=== PATIENT | female | born 1990 | race Caucasian/White ===

== ENCOUNTER 2024-05-17 19:44 | Emergency (ER) | payer OTHER ==
[2024-05-17] VITALS (12 sets, daily range): BP systolic 93–132; BP diastolic 52–113
[2024-05-17] MEDS ORDERED: KETOROLAC TROMETHAMINE 30 MG/ML SDV IM ONE (20:25)
[2024-05-17] MEDS ORDERED: BENZONATATE 200 MG/CAP PO ONE (20:25)
[2024-05-17] MEDS ORDERED: DEXAMETHASONE 2 MG/TAB TAB PO ONE (20:25)
[2024-05-17] MEDS ORDERED: BENZONATATE200 MG PO (22:50)
[2024-05-17] MEDS ORDERED: VENTOLIN HFA108 MCG IN (22:50)
== END 2024-05-17 22:50 | disposition home or self-care (01) | DRG 204 ==
LOC: ED 19:44
DX: R05.9 Cough, unspecified (principal); R52 Pain, unspecified; Z20.822 Contact with and (suspected) exposure to COVID-19

== ENCOUNTER 2024-05-21 13:37 | Emergency (ER) | payer OTHER ==
[~2024-05-21] VITALS: Ht 162.6 cm; Wt 87.5 kg
[~2024-05-21 13:37] MED LIST: BENZONATATE200 MG PO; VENTOLIN HFA108 MCG IN
[2024-05-21] MEDS ORDERED: AZITHROMYCIN 500 MG in SODIUM CHLORIDE 0.9% 250 ML IV ONE (14:00)
[2024-05-21] MEDS ORDERED: SODIUM CHLORIDE 0.9% 1,000 ML IV ONE (14:00)
[2024-05-21] MEDS ORDERED: IPRATROPIUM-Albuterol 0.5MG-2.5MG/3 ML NEB ONE (14:00)
[2024-05-21 14:16] VITALS: BP 115/71
[2024-05-21] MEDS ORDERED: AMOX/K CLAV875 M1 PO (14:22)
[2024-05-21] MEDS ORDERED: ZPAK PO (14:22)
[2024-05-21] MEDS ORDERED: CHERATUSSIN PO (14:23)
[2024-05-21 14:30] VITALS: BP 104/64
[2024-05-21 14:39] VITALS: BP 104/64
== END 2024-05-21 14:40 | disposition home or self-care (01) | DRG 153 ==
LOC: ED 13:37
DX: J06.9 Acute upper respiratory infection, unspecified (principal); H66.93 Otitis media, unspecified, bilateral